=== PATIENT | male | born 1975 | race Caucasian/White ===

== ENCOUNTER 2017-07-16 07:34 | Inpatient (IN) | payer MEDICARE, OTHER ==
[~2017-07-16] VITALS: Ht 177.8 cm; Wt 98.4 kg
[2017-07-16] VITALS (16 sets, daily range): BP systolic 110–146; BP diastolic 55–86
[~2017-07-16 07:34] MED LIST: ALBU8.5H8 IH; GABA-532 PO; NAPR-56 PO; TIZA4CAP6 PO
[2017-07-16] MEDS ORDERED: ondansetron/PF 4mg/2ml inj IV ONE (08:15)
[2017-07-16] MEDS ORDERED: ketorolac trometh. 30mg/ml inj. IV ONE (08:15)
[2017-07-16] MEDS ORDERED: normal saline 1000ML IV soln IVB ONE (08:15)
[2017-07-16] MEDS ORDERED: HYDROmorphone 1 mg/ml syringe IV PRN ×3 (08:15→10:25)
[2017-07-16 08:18] LABS: CLARITY,URINE CLEAR (Clear); COLOR,URINE STRAW (Yellow); GLUCOSE, URINE NEGATIVE (Neg); KETONES,URINE NEGATIVE (Neg); LEUKOCYTE ESTERASE ,URINE NEGATIVE (Neg); NITRITES, URINE NEGATIVE (Neg); OCCULT BLOOD,URINE LARGE (Neg); PROTEIN,URINE NEGATIVE (Neg); UROBILINOGEN,URINE 0.2 E.U/dL (0.2-1.0)
[2017-07-16 08:31] LABS: UA COLLECTION TYPE VOIDED
[2017-07-16 08:36] LABS: BACTERIA,URINE NONE SEEN /HPF (Neg); MUCUS STRANDS NONE SEEN /LPF (Neg); RBC,URINE 0-2 /HPF (0-2); SQUAMOUS EPITHELIAL CELL,UR NONE SEEN /LPF (FEW); WBC,URINE NONE SEEN /HPF (0-4)
[2017-07-16] MEDS ORDERED: phenylephrine 10mg/ml inj IV ONE (08:50)
[2017-07-16 08:52] LABS: ALANINE AMINOTRANSFERASE 42 U/L (12-78); ALBUMIN/GLOBULIN RATIO 1.3 (1.1-1.5); ALKALINE PHOSPHATASE 62 IU/L (46-116); ANION GAP 7 (8-16); ASPARTATE AMINO TRANSFERASE 16 U/L (10-37); BILIRUBIN,TOTAL 0.3 MG/DL (0.1-1.0); BLOOD UREA NITROGEN 20 MG/DL (7-18); BUN/CREATININE RATIO 16.7 (5.4-32.0); CALCIUM 8.3 MG/DL (8.5-10.1); CHLORIDE 109 MMOL/L (99-107); GLUCOSE 172 MG/DL (70-104); LIPASE 199 U/L (73-393); SODIUM 143 MMOL/L (135-145); eGFR 66 ML/MIN
[2017-07-16] MEDS: HYDROmorphone 2mg/ml vial IV PRN ×2 (09:05→10:00)
[2017-07-16 09:10] LABS: BASOPHILS # (AUTO) 0.1 X10'3 (0-0.2); BASOPHILS % (AUTO) 0.8 % (0-1); EOSINOPHILS # (AUTO) 0.2 X10'3 (0-0.9); EOSINOPHILS % (AUTO) 2.1 % (0-6); HEMATOCRIT 43.3 % (42.0-52.0); HEMOGLOBIN 15.4 g/dl (14.0-17.9); LYMPHOCYTES # (AUTO) 1.7 X10'3 (1.1-4.8); LYMPHOCYTES % (AUTO) 19.7 % (21-51); MEAN CORPUSCULAR HEMOGLOBIN 32.7 PG (27.0-31.0); MEAN CORPUSCULAR HGB CONC 35.5 % (33.0-36.5); MEAN CORPUSCULAR VOLUME 92.1 FL (78-98); MEAN PLATELET VOLUME 9.7 FL (7.4-10.4); MONOCYTES # (AUTO) 0.7 X10'3 (0-0.9); MONOCYTES % (AUTO) 8.2 % (2-12); NEUTROPHILS # (AUTO) 6.1 X10'3 (1.8-7.7); NEUTROPHILS % (AUTO) 69.2 % (42-75); PLATELET COUNT 208 X10'3 (140-440); RED BLOOD COUNT 4.71 X10'6 (4.70-6.10); WHITE BLOOD COUNT 8.9 X10'3 (4.5-11.0)
[2017-07-16] MEDS ORDERED: levoFLOXACIN-Levaquin 500mg/D5 100 ML IV ONE (09:50)
[2017-07-16] MEDS ORDERED: normal saline 1000ml 1,000 ML IV SCH ×2 (10:24→15:40)
[2017-07-16] MEDS ORDERED: acetaminophen 325mg tablet PO PRN ×3 (10:25→15:40)
[2017-07-16] MEDS ORDERED: magnesium hydroxide 30ml (MOM) UD suspension PO PRN ×2 (10:25→15:40)
[2017-07-16] MEDS ORDERED: ondansetron/PF 4mg/2ml inj IV PRN ×3 (10:25→15:40)
[2017-07-16] MEDS ORDERED: HYDROcodone/acetaminophen 5mg/325mg tablet PO PRN ×2 (10:25→15:40)
[2017-07-16] MEDS ORDERED: mag hydrox/Alum hydrox/simeth 30ml oral suspension PO PRN ×2 (10:25→15:40)
[2017-07-16] MEDS ORDERED: HYDROcodone/acetaminophen 10/325mg tab PO PRN (10:25)
[2017-07-16] MEDS: tamsulosin 0.4mg capsule PO SCH (10:28)
[2017-07-16] MEDS: normal saline 1000ml 1,000 ML IV SCH ×2 (10:29→19:54)
[2017-07-16] MEDS ORDERED: albuterol 2.5 MG/3 ML nebule NEB PRN ×2 (10:30→12:38)
[2017-07-16] MEDS: gabapentin 300mg capsule PO SCH ×3 (14:00→23:53)
[2017-07-16] MEDS ORDERED: ringers solution, lacted 1,000 ML IV SCH (14:09)
[2017-07-16] MEDS ORDERED: meperidine/PF 25mg/ml syringe IV PRN ×3 (14:10)
[2017-07-16] MEDS ORDERED: morphine 2 MG/ML inj. syringe IV PRN ×4 (14:10→15:40)
[2017-07-16] MEDS ORDERED: proCHLORperazine 10 MG/2 ml inj IV PRN (14:10)
[2017-07-16] MEDS ORDERED: fentaNYL/PF 50MCG/1 ML 2ML syringe ONE (14:32)
[2017-07-16] MEDS ORDERED: LIDOcaine 2% (20mg/ml) 5ml vial ONE (14:32)
[2017-07-16] MEDS ORDERED: propofol inj 20 ML IV ONE (14:32)
[2017-07-16] MEDS ORDERED: midazolam 2 mg/2 ml injection ONE (14:32)
[2017-07-16] MEDS ORDERED: sevoflurane 250ml liquid IH ONE (14:35)
[2017-07-16] MEDS ORDERED: iohexol 300 MG/1 ML 50ml polymer ONE (14:57)
[2017-07-16] MEDS ORDERED: potassium Cl 40MEQ/NS 500ml 500 ML IV PRN ×2 (15:40)
[2017-07-16] MEDS ORDERED: potassium Cl 20 mEq SR tablet PO PRN ×2 (15:40)
[2017-07-16] MEDS ORDERED: morphine 5 MG/ML injection IV PRN ×2 (15:47)
[2017-07-16] MEDS ORDERED: temazepam 15mg capsule PO PRN (21:00)
[2017-07-16] MEDS: tizanidine 4mg tablet PO SCH (23:54)
[2017-07-17] VITALS: BP 138/85
[2017-07-17] MEDS: ketorolac trometh. 30mg/ml inj. IV SCH ×5 (00:52→20:28)
[2017-07-17] MEDS: HYDROcodone/acetaminophen 10/325mg tab PO PRN ×4 (02:55→23:32)
[2017-07-17] MEDS: normal saline 1000ml 1,000 ML IV SCH ×3 (03:00→23:27)
[2017-07-17 04:00] VITALS: BP 142/83
[2017-07-17 06:15] LABS: PROTHROMBIN TIME 10.7 SECONDS (9.0-12.0)
[2017-07-17 06:20] LABS: ALBUMIN 2.9 G/DL (3.4-5.0); ANION GAP 5 (8-16); BLOOD UREA NITROGEN 14 MG/DL (7-18); BUN/CREATININE RATIO 15.6 (5.4-32.0); CALCIUM 8.3 MG/DL (8.5-10.1); CHLORIDE 110 MMOL/L (99-107); GLUCOSE 153 MG/DL (70-104); MAGNESIUM 1.7 MG/DL (1.5-2.4); POTASSIUM 4.2 MMOL/L (3.5-5.1); SODIUM 144 MMOL/L (135-145); TOTAL CARBON DIOXIDE 29.2 MMOL/L (24-32); eGFR > 90 ML/MIN
[2017-07-17 06:21] LABS: BASOPHILS % (AUTO) 0.2 % (0-1); EOSINOPHILS # (AUTO) 0.2 X10'3 (0-0.9); HEMATOCRIT 37.7 % (42.0-52.0); HEMOGLOBIN 13.2 g/dl (14.0-17.9); LYMPHOCYTES # (AUTO) 2.8 X10'3 (1.1-4.8); LYMPHOCYTES % (AUTO) 33.6 % (21-51); MEAN CORPUSCULAR HEMOGLOBIN 32.7 PG (27.0-31.0); MEAN CORPUSCULAR HGB CONC 35.1 % (33.0-36.5); MEAN CORPUSCULAR VOLUME 93.3 FL (78-98); MEAN PLATELET VOLUME 9.4 FL (7.4-10.4); MONOCYTES # (AUTO) 0.7 X10'3 (0-0.9); MONOCYTES % (AUTO) 8.3 % (2-12); NEUTROPHILS # (AUTO) 4.7 X10'3 (1.8-7.7); NEUTROPHILS % (AUTO) 55.9 % (42-75); PLATELET COUNT 179 X10'3 (140-440); RED BLOOD COUNT 4.04 X10'6 (4.70-6.10); WHITE BLOOD COUNT 8.4 X10'3 (4.5-11.0)
[2017-07-17 06:41] LABS: HEMOGLOBIN A1C 7.3 % (4.5-6.2)
[2017-07-17 08:00] VITALS: BP 143/94
[2017-07-17] MEDS: K and/or MAG REPLACEMENT MC SCH (08:00)
[2017-07-17] MEDS: gabapentin 300mg capsule PO SCH ×4 (08:02→21:51)
[2017-07-17] MEDS: levoFLOXACIN-Levaquin 500mg/D5 100 ML IV SCH (08:03)
[2017-07-17] MEDS: tamsulosin 0.4mg capsule PO SCH (08:03)
[2017-07-17] MEDS: pantoprazole 40 MG vial IV SCH (08:19)
[2017-07-17 11:00] VITALS: BP 148/109
[2017-07-17] MEDS: nicotine 14mg patch - 24hr TD SCH (18:09)
[2017-07-17] MEDS: LORazepam 1 MG tablet PO PRN (18:09)
[2017-07-17 19:30] VITALS: BP 151/80
[2017-07-17] MEDS: lactobacillus rhamnosus 10,000 MMU CELLS/CAPSULE PO SCH (20:26)
[2017-07-17] MEDS: temazepam 15mg capsule PO PRN ×2 (21:50→23:32)
[2017-07-17] MEDS: tizanidine 4mg tablet PO SCH (21:50)
[2017-07-18] VITALS: BP 139/83
[2017-07-18] MEDS: ketorolac trometh. 30mg/ml inj. IV SCH ×2 (01:58→08:11)
[2017-07-18] MEDS: LORazepam 1 MG tablet PO PRN (01:58)
[2017-07-18] MEDS: HYDROcodone/acetaminophen 10/325mg tab PO PRN ×2 (04:21→08:18)
[2017-07-18 06:18] LABS: BASOPHILS % (AUTO) 0.4 % (0-1); EOSINOPHILS # (AUTO) 0.2 X10'3 (0-0.9); EOSINOPHILS % (AUTO) 2.1 % (0-6); HEMATOCRIT 41.1 % (42.0-52.0); HEMOGLOBIN 14.2 g/dl (14.0-17.9); LYMPHOCYTES # (AUTO) 2.2 X10'3 (1.1-4.8); LYMPHOCYTES % (AUTO) 20.5 % (21-51); MEAN CORPUSCULAR HEMOGLOBIN 32.5 PG (27.0-31.0); MEAN CORPUSCULAR HGB CONC 34.6 % (33.0-36.5); MEAN CORPUSCULAR VOLUME 93.8 FL (78-98); MONOCYTES # (AUTO) 0.8 X10'3 (0-0.9); MONOCYTES % (AUTO) 6.9 % (2-12); NEUTROPHILS # (AUTO) 7.7 X10'3 (1.8-7.7); NEUTROPHILS % (AUTO) 70.1 % (42-75); PLATELET COUNT 187 X10'3 (140-440); PROTHROMBIN TIME 10.2 SECONDS (9.0-12.0); RED BLOOD COUNT 4.38 X10'6 (4.70-6.10); RED CELL DISTRIBUTION WIDTH 12.6 % (11.5-14.5)
[2017-07-18 06:34] LABS: ALBUMIN 3.4 G/DL (3.4-5.0); ANION GAP 6 (8-16); BLOOD UREA NITROGEN 11 MG/DL (7-18); CALCIUM 8.7 MG/DL (8.5-10.1); CHLORIDE 110 MMOL/L (99-107); GLUCOSE 128 MG/DL (70-104); MAGNESIUM 1.7 MG/DL (1.5-2.4); POTASSIUM 4.2 MMOL/L (3.5-5.1); SODIUM 145 MMOL/L (135-145); TOTAL CARBON DIOXIDE 29.1 MMOL/L (24-32); eGFR 82 ML/MIN
[2017-07-18] MEDS: K and/or MAG REPLACEMENT MC SCH (08:00)
[2017-07-18] MEDS: tamsulosin 0.4mg capsule PO SCH (08:10)
[2017-07-18] MEDS: gabapentin 300mg capsule PO SCH (08:10)
[2017-07-18] MEDS: lactobacillus rhamnosus 10,000 MMU CELLS/CAPSULE PO SCH (08:11)
[2017-07-18] MEDS: pantoprazole 40 MG vial IV SCH (08:11)
[2017-07-18] MEDS: levoFLOXACIN-Levaquin 500mg/D5 100 ML IV SCH (08:11)
[2017-07-18] MEDS: nicotine 14mg patch - 24hr TD SCH (08:12)
[2017-07-18] MEDS ORDERED: HYDR-569 PO (10:09)
== END 2017-07-18 10:30 | disposition home or self-care (01) | DRG 694 ==
LOC: ER 07:34 → ED HOLD 10:24 → MED 3N 16:56
PROVIDERS: ADMIT Internal Medicine; ATTEND Anesthesiology
PROC: 0T778DZ Dilation of Left Ureter with Intraluminal Device, Via Natural or Artificial Opening Endoscopic (ICD-10-PCS; 2017-07-16)
PROC: BT1F1ZZ Fluoroscopy of Left Kidney, Ureter and Bladder using Low Osmolar Contrast (ICD-10-PCS; principal; 2017-07-16 14:35)
DX: N20.0 Calculus of kidney (principal); N12 Tubulo-interstitial nephritis, not specified as acute or chronic; K76.0 Fatty (change of) liver, not elsewhere classified; E11.9 Type 2 diabetes mellitus without complications; F41.9 Anxiety disorder, unspecified; G89.29 Other chronic pain; Z98.1 Arthrodesis status; Z91.041 Radiographic dye allergy status; Z91.013 Allergy to seafood; Z79.899 Other long term (current) drug therapy; Z82.49 Family history of ischemic heart disease and other diseases of the circulatory system; Z82.5 Family history of asthma and other chronic lower respiratory diseases; Z83.3 Family history of diabetes mellitus; Z81.8 Family history of other mental and behavioral disorders
CPT/HCPCS: 36415; 74176; 76001; 80048; 80053; 81001; 82948; 83036; 83690; 83735; 85025; 85610; 87070; 94760; 96365; 96375; 99285; A4402; C1758; C1769; C2617; C9113; J1170; J1885; J1956; J2001; J2250; J2370; J2405; J2704; J3010; J7030; J7120; Q9967

== ENCOUNTER 2017-07-29 11:30 | Emergency (ER) | payer MEDICARE, OTHER ==
[~2017-07-29] VITALS: Ht 177.8 cm; Wt 95.4 kg
[~2017-07-29 11:30] MED LIST changes: +HYDR-569 PO
[2017-07-29] MEDS ORDERED: normal saline 1000ML IV soln IVB ONE (12:05)
[2017-07-29] MEDS ORDERED: ondansetron/PF 4mg/2ml inj IV ONE (12:05)
[2017-07-29 12:08] LABS: COLOR,URINE YELLOW (Yellow); GLUCOSE, URINE 500 mg/dl (Neg); KETONES,URINE NEGATIVE (Neg); LEUKOCYTE ESTERASE ,URINE SMALL (Neg); NITRITES, URINE NEGATIVE (Neg); OCCULT BLOOD,URINE LARGE (Neg); PROTEIN,URINE TRACE mg/dl (Neg); UROBILINOGEN,URINE 0.2 E.U/dL (0.2-1.0)
[2017-07-29 12:09] LABS: CLARITY,URINE CLOUDY (Clear); UA COLLECTION TYPE CLN CATCH MIDSTREAM
[2017-07-29 12:15] LABS: WBC,URINE 0-4 /HPF (0-4)
[2017-07-29] MEDS ORDERED: morphine 4 MG/ML inj SYRINge IV ONE (12:15)
[2017-07-29 12:16] LABS: BACTERIA,URINE NONE SEEN /HPF (Neg); MUCUS STRANDS FEW /LPF (Neg); RBC,URINE TNTC /HPF (0-2); SQUAMOUS EPITHELIAL CELL,UR FEW /LPF (FEW)
[2017-07-29 12:29] LABS: BASOPHILS % (AUTO) 0.8 % (0-1); EOSINOPHILS # (AUTO) 0.1 X10'3 (0-0.9); EOSINOPHILS % (AUTO) 2.4 % (0-6); HEMATOCRIT 41.9 % (42.0-52.0); HEMOGLOBIN 14.8 g/dl (14.0-17.9); MEAN CORPUSCULAR HEMOGLOBIN 32.9 PG (27.0-31.0); MEAN CORPUSCULAR HGB CONC 35.4 % (33.0-36.5); MEAN CORPUSCULAR VOLUME 92.8 FL (78-98); MEAN PLATELET VOLUME 9.6 FL (7.4-10.4); MONOCYTES # (AUTO) 0.8 X10'3 (0-0.9); MONOCYTES % (AUTO) 13.3 % (2-12); NEUTROPHILS # (AUTO) 4.1 X10'3 (1.8-7.7); NEUTROPHILS % (AUTO) 66.5 % (42-75); PLATELET COUNT 203 X10'3 (140-440); RED BLOOD COUNT 4.51 X10'6 (4.70-6.10); RED CELL DISTRIBUTION WIDTH 13.1 % (11.5-14.5); WHITE BLOOD COUNT 6.1 X10'3 (4.5-11.0)
[2017-07-29 12:55] LABS: ALANINE AMINOTRANSFERASE 40 U/L (12-78); ALBUMIN 3.9 G/DL (3.4-5.0); ALBUMIN/GLOBULIN RATIO 1.3 (1.1-1.5); ALKALINE PHOSPHATASE 72 IU/L (46-116); ANION GAP 7 (8-16); ASPARTATE AMINO TRANSFERASE 17 U/L (10-37); BILIRUBIN,TOTAL 0.3 MG/DL (0.1-1.0); BLOOD UREA NITROGEN 12 MG/DL (7-18); CALCIUM 8.9 MG/DL (8.5-10.1); CHLORIDE 105 MMOL/L (99-107); CREATININE 1.09 MG/DL (0.60-1.10); GLUCOSE 222 MG/DL (70-104); SODIUM 142 MMOL/L (135-145); TOTAL CARBON DIOXIDE 29.8 MMOL/L (24-32); TOTAL PROTEIN 6.8 G/DL (6.4-8.2); eGFR 74 ML/MIN
[2017-07-29] MEDS ORDERED: tamsulosin 0.4mg capsule PO ONE (13:02)
[2017-07-29] MEDS ORDERED: FLO0.4C PO (13:05)
[2017-07-29] MEDS ORDERED: NAPR-56 PO (13:05)
[2017-07-29] MEDS ORDERED: morphine 5 MG/ML injection IV ONE (13:05)
[2017-07-29] MEDS ORDERED: CEPH-571 PO (13:05)
[2017-07-29] MEDS ORDERED: HYDROcodone/acetaminophen 10/325mg tab PO ONE (13:05)
[2017-07-29 14:00] VITALS: BP 164/96
== END 2017-07-29 14:04 | disposition home or self-care (01) ==
LOC: ER 11:31
DX: G89.18 Other acute postprocedural pain (principal); R31.9 Hematuria, unspecified; J06.9 Acute upper respiratory infection, unspecified; G89.29 Other chronic pain; I25.10 Atherosclerotic heart disease of native coronary artery without angina pectoris; E11.9 Type 2 diabetes mellitus without complications; Z98.890 Other specified postprocedural states; Z91.018 Allergy to other foods
CPT/HCPCS: 36415; 80053; 81001; 85025; 87088; 96374; 99284; J2405; J7030

== ENCOUNTER 2017-08-01 20:07 | Emergency (ER) | payer MEDICARE, OTHER ==
[~2017-08-01] VITALS: Ht 177.8 cm; Wt 95.0 kg
[~2017-08-01 20:07] MED LIST changes: +CEPH-571 PO; +FLO0.4C PO
[2017-08-01 21:47] LABS: CLARITY,URINE CLEAR (Clear); COLOR,URINE YELLOW (Yellow); GLUCOSE, URINE NEGATIVE (Neg); KETONES,URINE NEGATIVE (Neg); LEUKOCYTE ESTERASE ,URINE MODERATE (Neg); NITRITES, URINE NEGATIVE (Neg); OCCULT BLOOD,URINE LARGE (Neg); PROTEIN,URINE 30 mg/dl (Neg); UROBILINOGEN,URINE 0.2 E.U/dL (0.2-1.0)
[2017-08-01 21:54] LABS: UA COLLECTION TYPE NON-SPECIFIED
[2017-08-01 21:55] LABS: BACTERIA,URINE NONE SEEN /HPF (Neg); MUCUS STRANDS NONE SEEN /LPF (Neg); RBC,URINE TNTC /HPF (0-2); SQUAMOUS EPITHELIAL CELL,UR NONE SEEN /LPF (FEW)
[2017-08-01 22:11] VITALS: BP 153/100
== END 2017-08-01 22:08 | disposition home or self-care (01) ==
LOC: ER 20:08
DX: R10.9 Unspecified abdominal pain (principal); G89.29 Other chronic pain; Z87.442 Personal history of urinary calculi; Z98.890 Other specified postprocedural states; Z79.899 Other long term (current) drug therapy
CPT/HCPCS: 74018; 81001; 87088; 99285

== ENCOUNTER 2017-08-07 19:18 | Emergency (ER) | payer OTHER ==
[~2017-08-07] VITALS: Ht 177.8 cm; Wt 89.5 kg
[2017-08-07] MEDS ORDERED: normal saline 1000ML IV soln IVB ONE (19:30)
[2017-08-07] MEDS ORDERED: HYDROmorphone inj. 0.5 MG/0.5 ML DISP.SYRIN IV PRN (19:30)
[2017-08-07] MEDS ORDERED: ondansetron/PF 4mg/2ml inj IV ONE (19:30)
[2017-08-07 19:49] LABS: CLARITY,URINE CLOUDY (Clear); COLOR,URINE YELLOW (Yellow); GLUCOSE, URINE 100 mg/dl (Neg); KETONES,URINE NEGATIVE (Neg); LEUKOCYTE ESTERASE ,URINE TRACE (Neg); NITRITES, URINE NEGATIVE (Neg); OCCULT BLOOD,URINE LARGE (Neg); PH,URINE 5.5 (4.8-8.0); PROTEIN,URINE 100 mg/dl (Neg); UROBILINOGEN,URINE 0.2 E.U/dL (0.2-1.0)
[2017-08-07 19:53] LABS: UA COLLECTION TYPE CLN CATCH MIDSTREAM
[2017-08-07 19:57] LABS: BACTERIA,URINE 1+ /HPF (Neg); MUCUS STRANDS MODERATE /LPF (Neg); RBC,URINE TNTC /HPF (0-2); SQUAMOUS EPITHELIAL CELL,UR FEW /LPF (FEW); TRANSITIONAL EPI CELLS,URINE FEW /HPF
[2017-08-07 19:58] LABS: WBC,URINE 30-50 /HPF (0-4)
[2017-08-07 20:40] LABS: BASOPHILS % (AUTO) 0.3 % (0-1); EOSINOPHILS # (AUTO) 0.3 X10'3 (0-0.9); EOSINOPHILS % (AUTO) 2.6 % (0-6); HEMATOCRIT 41.6 % (42.0-52.0); HEMOGLOBIN 14.7 g/dl (14.0-17.9); LYMPHOCYTES # (AUTO) 2.9 X10'3 (1.1-4.8); LYMPHOCYTES % (AUTO) 26.2 % (21-51); MEAN CORPUSCULAR HEMOGLOBIN 32.9 PG (27.0-31.0); MEAN CORPUSCULAR HGB CONC 35.3 % (33.0-36.5); MEAN CORPUSCULAR VOLUME 93.4 FL (78-98); MEAN PLATELET VOLUME 9.4 FL (7.4-10.4); MONOCYTES # (AUTO) 0.8 X10'3 (0-0.9); NEUTROPHILS # (AUTO) 7.1 X10'3 (1.8-7.7); NEUTROPHILS % (AUTO) 63.9 % (42-75); PLATELET COUNT 225 X10'3 (140-440); RED BLOOD COUNT 4.45 X10'6 (4.70-6.10); RED CELL DISTRIBUTION WIDTH 12.7 % (11.5-14.5); WHITE BLOOD COUNT 11.1 X10'3 (4.5-11.0)
[2017-08-07] MEDS ORDERED: ketorolac trometh. 30mg/ml inj. IV ONE (20:55)
[2017-08-07 20:56] LABS: ALANINE AMINOTRANSFERASE 32 U/L (12-78); ALBUMIN 3.6 G/DL (3.4-5.0); ALBUMIN/GLOBULIN RATIO 1.2 (1.1-1.5); ALKALINE PHOSPHATASE 64 IU/L (46-116); ANION GAP 8 (8-16); ASPARTATE AMINO TRANSFERASE 12 U/L (10-37); BILIRUBIN,TOTAL 0.3 MG/DL (0.1-1.0); BLOOD UREA NITROGEN 15 MG/DL (7-18); BUN/CREATININE RATIO 14.3 (5.4-32.0); CHLORIDE 109 MMOL/L (99-107); CREATININE 1.05 MG/DL (0.60-1.10); GLUCOSE 211 MG/DL (70-104); POTASSIUM 3.6 MMOL/L (3.5-5.1); SODIUM 145 MMOL/L (135-145); TOTAL CARBON DIOXIDE 27.9 MMOL/L (24-32); TOTAL PROTEIN 6.5 G/DL (6.4-8.2); eGFR 77 ML/MIN
[2017-08-07] MEDS ORDERED: HYDROmorphone 1 mg/ml syringe IV ONE (21:00)
[2017-08-07] MEDS ORDERED: HYDR-565 PO (21:05)
[2017-08-07] MEDS ORDERED: CIPR-259 PO (21:05)
[2017-08-07] MEDS ORDERED: HYDROmorphone inj. 0.5 MG/0.5 ML DISP.SYRIN IV ONE (21:05)
[2017-08-07] MEDS ORDERED: NAPR-56 PO (21:06)
[2017-08-07 21:43] VITALS: BP 161/96
== END 2017-08-07 21:44 | disposition home or self-care (01) ==
LOC: ER 19:18
DX: T83.84XA Pain due to genitourinary prosthetic devices, implants and grafts, initial encounter (principal); N39.0 Urinary tract infection, site not specified; N32.89 Other specified disorders of bladder; G89.29 Other chronic pain; Z87.442 Personal history of urinary calculi; Z88.8 Allergy status to other drugs, medicaments and biological substances; Z79.899 Other long term (current) drug therapy; Y92.89 Other specified places as the place of occurrence of the external cause
CPT/HCPCS: 36415; 74176; 80053; 81001; 85025; 87088; 96374; 96375; 96376; 99285; J1170; J1885; J2405; J7030

== ENCOUNTER 2017-08-16 16:45 | Emergency (ER) | payer OTHER ==
[~2017-08-16] VITALS: Ht 177.8 cm; Wt 93.8 kg
[~2017-08-16 16:45] MED LIST changes: +CIPR-259 PO
[2017-08-16 17:43] LABS: CLARITY,URINE SLIGHTLY CLOUDY (Clear); COLOR,URINE AMBER (Yellow); GLUCOSE, URINE NEGATIVE (Neg); KETONES,URINE NEGATIVE (Neg); LEUKOCYTE ESTERASE ,URINE MODERATE (Neg); NITRITES, URINE NEGATIVE (Neg); OCCULT BLOOD,URINE LARGE (Neg); PROTEIN,URINE 100 mg/dl (Neg); UROBILINOGEN,URINE 0.2 E.U/dL (0.2-1.0)
[2017-08-16 17:48] LABS: UA COLLECTION TYPE CLN CATCH MIDSTREAM
[2017-08-16 17:49] LABS: BACTERIA,URINE 1+ /HPF (Neg); RBC,URINE TNTC /HPF (0-2)
[2017-08-16 17:50] LABS: MUCUS STRANDS NONE SEEN /LPF (Neg); SQUAMOUS EPITHELIAL CELL,UR FEW /LPF (FEW); TRANSITIONAL EPI CELLS,URINE FEW /HPF
[2017-08-16 17:57] LABS: BASOPHILS % (AUTO) 0.5 % (0-1); EOSINOPHILS # (AUTO) 0.2 X10'3 (0-0.9); EOSINOPHILS % (AUTO) 1.7 % (0-6); HEMATOCRIT 49.4 % (42.0-52.0); HEMOGLOBIN 16.9 g/dl (14.0-17.9); LYMPHOCYTES # (AUTO) 2.4 X10'3 (1.1-4.8); LYMPHOCYTES % (AUTO) 24.8 % (21-51); MEAN CORPUSCULAR HGB CONC 34.2 % (33.0-36.5); MEAN CORPUSCULAR VOLUME 93.6 FL (78-98); MEAN PLATELET VOLUME 9.7 FL (7.4-10.4); MONOCYTES # (AUTO) 0.8 X10'3 (0-0.9); MONOCYTES % (AUTO) 7.8 % (2-12); NEUTROPHILS # (AUTO) 6.3 X10'3 (1.8-7.7); NEUTROPHILS % (AUTO) 65.2 % (42-75); PLATELET COUNT 257 X10'3 (140-440); RED BLOOD COUNT 5.28 X10'6 (4.70-6.10); WHITE BLOOD COUNT 9.7 X10'3 (4.5-11.0)
[2017-08-16 18:13] LABS: ALANINE AMINOTRANSFERASE 44 U/L (12-78); ALBUMIN 4.3 G/DL (3.4-5.0); ALBUMIN/GLOBULIN RATIO 1.1 (1.1-1.5); ALKALINE PHOSPHATASE 73 IU/L (46-116); ANION GAP 9 (8-16); ASPARTATE AMINO TRANSFERASE 15 U/L (10-37); BILIRUBIN,TOTAL 0.4 MG/DL (0.1-1.0); BLOOD UREA NITROGEN 14 MG/DL (7-18); BUN/CREATININE RATIO 14.9 (5.4-32.0); CALCIUM 9.3 MG/DL (8.5-10.1); CHLORIDE 105 MMOL/L (99-107); CREATININE 0.94 MG/DL (0.60-1.10); GLUCOSE 136 MG/DL (70-104); SODIUM 143 MMOL/L (135-145); TOTAL CARBON DIOXIDE 29.4 MMOL/L (24-32); TOTAL PROTEIN 8.3 G/DL (6.4-8.2); eGFR 88 ML/MIN
[2017-08-16] MEDS ORDERED: BETH25TA43 PO (18:49)
[2017-08-16] MEDS ORDERED: PHEN-716 PO (18:49)
[2017-08-16 18:55] VITALS: BP 153/108
== END 2017-08-16 18:56 | disposition home or self-care (01) ==
LOC: ER 16:46
DX: N30.90 Cystitis, unspecified without hematuria (principal); G89.29 Other chronic pain; Z87.442 Personal history of urinary calculi; Z88.8 Allergy status to other drugs, medicaments and biological substances; Z98.890 Other specified postprocedural states; Z79.899 Other long term (current) drug therapy
CPT/HCPCS: 36415; 80053; 81001; 85025; 85610; 87088; 99284

== ENCOUNTER 2017-09-04 06:29 | Emergency (ER) | payer OTHER ==
[~2017-09-04] VITALS: Ht 177.8 cm; Wt 85.5 kg
[~2017-09-04 06:29] MED LIST changes: +BETH25TA43 PO; -CIPR-259 PO; -FLO0.4C PO; +PHEN-716 PO
[2017-09-04] MEDS ORDERED: MORPHINE 2MG in 2ml NS syringe IV STA (06:54)
[2017-09-04] MEDS ORDERED: ondansetron/PF 4mg/2ml inj IV ONE (06:55)
[2017-09-04] MEDS ORDERED: normal saline 1000ML IV soln IVB ONE (06:55)
[2017-09-04 07:11] LABS: BASOPHILS % (AUTO) 0.2 % (0-1); EOSINOPHILS # (AUTO) 0.2 X10'3 (0-0.9); EOSINOPHILS % (AUTO) 2.1 % (0-6); HEMATOCRIT 47.3 % (42.0-52.0); HEMOGLOBIN 16.5 g/dl (14.0-17.9); LYMPHOCYTES # (AUTO) 2.8 X10'3 (1.1-4.8); MEAN CORPUSCULAR HEMOGLOBIN 32.2 PG (27.0-31.0); MEAN CORPUSCULAR HGB CONC 34.8 % (33.0-36.5); MEAN CORPUSCULAR VOLUME 92.6 FL (78-98); MEAN PLATELET VOLUME 9.4 FL (7.4-10.4); MONOCYTES # (AUTO) 0.7 X10'3 (0-0.9); MONOCYTES % (AUTO) 8.3 % (2-12); NEUTROPHILS # (AUTO) 4.4 X10'3 (1.8-7.7); NEUTROPHILS % (AUTO) 54.4 % (42-75); PLATELET COUNT 239 X10'3 (140-440); RED BLOOD COUNT 5.11 X10'6 (4.70-6.10); RED CELL DISTRIBUTION WIDTH 12.6 % (11.5-14.5); WHITE BLOOD COUNT 8.1 X10'3 (4.5-11.0)
[2017-09-04] MEDS ORDERED: GABA300C PO (07:19)
[2017-09-04 07:20] LABS: PROTHROMBIN TIME 10.5 SECONDS (9.0-12.0)
[2017-09-04 07:26] LABS: ALANINE AMINOTRANSFERASE 45 U/L (12-78); ALBUMIN 4.1 G/DL (3.4-5.0); ALBUMIN/GLOBULIN RATIO 1.1 (1.1-1.5); ALKALINE PHOSPHATASE 76 IU/L (46-116); ANION GAP 12 (8-16); ASPARTATE AMINO TRANSFERASE 13 U/L (10-37); BILIRUBIN,TOTAL 0.6 MG/DL (0.1-1.0); BLOOD UREA NITROGEN 15 MG/DL (7-18); BUN/CREATININE RATIO 14.7 (5.4-32.0); CALCIUM 9.1 MG/DL (8.5-10.1); CHLORIDE 105 MMOL/L (99-107); CREATININE 1.02 MG/DL (0.60-1.10); GLUCOSE 144 MG/DL (70-104); POTASSIUM 4.1 MMOL/L (3.5-5.1); SODIUM 142 MMOL/L (135-145); TOTAL CARBON DIOXIDE 24.6 MMOL/L (24-32); TOTAL PROTEIN 7.8 G/DL (6.4-8.2); eGFR 80 ML/MIN
[2017-09-04 08:47] LABS: CLARITY,URINE SLIGHTLY CLOUDY (Clear); COLOR,URINE YELLOW (Yellow); GLUCOSE, URINE NEGATIVE (Neg); KETONES,URINE NEGATIVE (Neg); LEUKOCYTE ESTERASE ,URINE SMALL (Neg); NITRITES, URINE NEGATIVE (Neg); OCCULT BLOOD,URINE LARGE (Neg); PH,URINE 5.5 (4.8-8.0); PROTEIN,URINE 30 mg/dl (Neg); UROBILINOGEN,URINE 0.2 E.U/dL (0.2-1.0)
[2017-09-04 08:48] LABS: UA COLLECTION TYPE VOIDED
[2017-09-04 08:54] LABS: SQUAMOUS EPITHELIAL CELL,UR FEW /LPF (FEW)
[2017-09-04 08:55] LABS: BACTERIA,URINE FEW /HPF (Neg); MUCUS STRANDS NONE SEEN /LPF (Neg); RBC,URINE 20-50 /HPF (0-2); TRANSITIONAL EPI CELLS,URINE MODERATE /HPF; WBC,URINE 0-4 /HPF (0-4)
[2017-09-04] MEDS ORDERED: CIPR-230 PO (09:22)
[2017-09-04] MEDS ORDERED: METR500T4 PO (09:22)
[2017-09-04 09:44] VITALS: BP 119/79
== END 2017-09-04 09:46 | disposition home or self-care (01) ==
LOC: ER 06:30
DX: R10.32 Left lower quadrant pain (principal); R19.7 Diarrhea, unspecified; R50.9 Fever, unspecified; G89.29 Other chronic pain; E11.9 Type 2 diabetes mellitus without complications; Z87.442 Personal history of urinary calculi; Z88.8 Allergy status to other drugs, medicaments and biological substances; Z79.899 Other long term (current) drug therapy
CPT/HCPCS: 36415; 74176; 80053; 81001; 85025; 85610; 87088; 96361; 96374; 96375; 99285; J2274; J2405; J7030